=== PATIENT | female | born 1990 | race African-American/Black ===

== ENCOUNTER 2018-09-28 14:44 | Emergency (ER) | payer OTHER ==
[~2018-09-28] VITALS: Ht 162.6 cm; Wt 81.7 kg
[2018-09-28 15:20] LABS: MCH 28.8 pg (26.0-34.0); MCHC 34.3 g/dL (28.0-37.0); MCV 83.8 fL (80.0-100.0); RBC 3.81 mil/uL (4.20-5.00); RDW 15.5 % (10.5-14.5); WBC 7.2 thou/uL (4.0-11.0)
[2018-09-28 15:27] LABS: CALCIUM 8.7 mg/dL (8.5-10.1); CREATININE 0.6 mg/dL (0.6-1.0); POTASSIUM 3.7 mmol/L (3.5-5.1)
[2018-09-28 15:33] LABS: URINE BILIRUBIN NEGATIVE (Negative); URINE BLOOD NEGATIVE (Negative); URINE CLARITY SL CLOUDY; URINE COLOR YELLOW; URINE GLUCOSE-RANDOM* NEGATIVE (Negative); URINE KETONES NEGATIVE (Negative); URINE LEUKOCYTES-REFLEX NEGATIVE (Negative); URINE NITRITE-REFLEX NEGATIVE (Negative); URINE PROTEIN (DIPSTICK) NEGATIVE (Negative); URINE UROBILINOGEN 0.2 E.U./dl (0.2-1.0)
[2018-09-28 17:16] VITALS: BP 121/67
== END 2018-09-28 17:25 | disposition home or self-care (01) ==
LOC: ER 14:44
PROVIDERS: Emergency Medicine
DX: O23.592 Infection of other part of genital tract in pregnancy, second trimester (principal); N76.0 Acute vaginitis; B96.89 Other specified bacterial agents as the cause of diseases classified elsewhere; Z3A.17 17 weeks gestation of pregnancy

== ENCOUNTER 2019-02-24 13:44 | Emergency (ER) | payer OTHER ==
[~2019-02-24] VITALS: Ht 162.6 cm; Wt 72.6 kg
[2019-02-24 14:07] LABS: URINE BILIRUBIN NEGATIVE (Negative); URINE BLOOD NEGATIVE (Negative); URINE CLARITY CLEAR; URINE COLOR YELLOW; URINE GLUCOSE-RANDOM* NEGATIVE (Negative); URINE KETONES NEGATIVE (Negative); URINE LEUKOCYTES-REFLEX NEGATIVE (Negative); URINE NITRITE-REFLEX NEGATIVE (Negative); URINE PROTEIN (DIPSTICK) NEGATIVE (Negative); URINE SPECIFIC GRAVITY 1.025 (1.005-1.035); URINE UROBILINOGEN 0.2 E.U./dl (0.2-1.0)
[2019-02-24 14:36] LABS: ABSOLUTE NEUTROPHILS 3.1 thou/uL (1.4-8.2); BASOPHILS 0.8 % (0.0-2.0); EOSINOPHILS 8.9 % (0.0-3.0); HEMATOCRIT 37.5 % (37.0-47.0); HEMOGLOBIN 12.3 gm/dL (12.0-15.0); LYMPHOCYTES 30.2 % (24.0-44.0); MCH 27.4 pg (26.0-34.0); MCHC 32.7 g/dL (28.0-37.0); MCV 83.7 fL (80.0-100.0); MONOCYTES 5.8 % (1.0-8.0); PLATELET COUNT 197 thou/uL (150-400); POLYS 54.3 % (36.0-66.0); RBC 4.48 mil/uL (4.20-5.00); RDW 14.2 % (10.5-14.5); WBC 5.6 thou/uL (4.0-11.0)
[2019-02-24 14:46] LABS: CALCIUM 8.9 mg/dL (8.5-10.1); CREATININE 0.7 mg/dL (0.6-1.0)
[2019-02-24 14:47] LABS: POTASSIUM 5.2 mmol/L (3.5-5.1)
[2019-02-24] MEDS ORDERED: ALIVE PRENATAL1 EACH PO (15:54)
[2019-02-24 16:13] VITALS: BP 116/63
== END 2019-02-24 16:15 | disposition home or self-care (01) ==
LOC: ER 13:44
PROVIDERS: Student in an Organized Health Care Education/Training Program
DX: O20.0 Threatened abortion (principal); Z3A.01 Less than 8 weeks gestation of pregnancy

== ENCOUNTER 2019-04-18 13:27 | Emergency (ER) | payer OTHER ==
[~2019-04-18] VITALS: Ht 162.6 cm; Wt 81.7 kg
[2019-04-18 13:27] VITALS: BP 116/64
[~2019-04-18 13:27] MED LIST: ALIVE PRENATAL1 EACH PO
[2019-04-18 13:46] LABS: URINE BILIRUBIN NEGATIVE (Negative); URINE BLOOD NEGATIVE (Negative); URINE CLARITY CLOUDY; URINE COLOR YELLOW; URINE GLUCOSE-RANDOM* NEGATIVE (Negative); URINE KETONES NEGATIVE (Negative); URINE LEUKOCYTES-REFLEX NEGATIVE (Negative); URINE NITRITE-REFLEX NEGATIVE (Negative); URINE PROTEIN (DIPSTICK) NEGATIVE (Negative); URINE UROBILINOGEN 0.2 E.U./dl (0.2-1.0)
== END 2019-04-18 14:44 | disposition home or self-care (01) ==
LOC: ER 13:27
PROVIDERS: Emergency Medicine
DX: O26.891 Other specified pregnancy related conditions, first trimester (principal); Z3A.00 Weeks of gestation of pregnancy not specified

== ENCOUNTER 2019-09-24 14:02 | Emergency (ER) | payer OTHER ==
[~2019-09-24] VITALS: Ht 162.6 cm; Wt 98.0 kg
[2019-09-24 14:32] VITALS: BP 122/58
== END 2019-09-24 16:06 | disposition home or self-care (01) ==
LOC: ER 14:02
DX: O26.893 Other specified pregnancy related conditions, third trimester (principal); M54.5 Low back pain; Z3A.36 36 weeks gestation of pregnancy; V89.2XXA Person injured in unspecified motor-vehicle accident, traffic, initial encounter; Y93.89 Activity, other specified; Y92.89 Other specified places as the place of occurrence of the external cause; Y99.8 Other external cause status

== ENCOUNTER 2020-09-17 07:23 | Emergency (ER) | payer OTHER ==
[~2020-09-17] VITALS: Ht 162.6 cm; Wt 81.7 kg
[2020-09-17 08:24] LABS: URINE BILIRUBIN NEGATIVE (Negative); URINE BLOOD 1+ (Negative); URINE CLARITY SL CLOUDY; URINE COLOR YELLOW; URINE GLUCOSE-RANDOM* NEGATIVE (Negative); URINE KETONES NEGATIVE (Negative); URINE NITRITE-REFLEX NEGATIVE (Negative); URINE PROTEIN (DIPSTICK) NEGATIVE (Negative); URINE SPECIFIC GRAVITY >= 1.030 (1.005-1.035); URINE UROBILINOGEN 0.2 E.U./dl (0.2-1.0)
[2020-09-17 08:25] LABS: URINE LEUKOCYTES-REFLEX 2+ (Negative)
[2020-09-17 09:35] LABS: CASTS None Seen /LPF (None Seen); CRYSTALS None Seen /LPF (None Seen); SQUAMOUS 4-10 Moderate /LPF (0-3)
[2020-09-17 09:36] LABS: BACTERIA-REFLEX 1-9 Few /HPF (None Seen); URINE RBC 0-2 Rare /HPF (0-2); URINE WBC-REFLEX 0-5 Rare /HPF (0-5)
[2020-09-17 09:37] LABS: YEAST-REFLEX Present (None Seen)
[2020-09-17] MEDS ORDERED: METROGEL-VAGINA70 GM VAG (10:50)
[2020-09-17 11:30] VITALS: BP 136/68
== END 2020-09-17 11:52 | disposition home or self-care (01) ==
LOC: ER 07:23
PROVIDERS: Emergency Medicine
DX: B37.3 Candidiasis of vulva and vagina (principal); N76.0 Acute vaginitis; Z79.899 Other long term (current) drug therapy

== ENCOUNTER 2020-11-22 09:15 | Emergency (ER) | payer OTHER ==
[~2020-11-22] VITALS: Ht 162.6 cm; Wt 86.2 kg
[~2020-11-22 09:15] MED LIST changes: +METROGEL-VAGINA70 GM VAG
[2020-11-22] MEDS ORDERED: ROBAXIN 750 MG750 MG PO (09:34)
[2020-11-22] MEDS ORDERED: TYLENOL325 M1 PO (09:34)
[2020-11-22] MEDS ORDERED: NAPROSYN500 MG PO (09:34)
[2020-11-22 09:39] VITALS: BP 128/63
== END 2020-11-22 09:40 | disposition home or self-care (01) ==
LOC: ER 09:15
DX: S39.012A Strain of muscle, fascia and tendon of lower back, initial encounter (principal); S29.012A Strain of muscle and tendon of back wall of thorax, initial encounter; V49.9XXA Car occupant (driver) (passenger) injured in unspecified traffic accident, initial encounter; Y93.89 Activity, other specified; Y92.89 Other specified places as the place of occurrence of the external cause; Y99.8 Other external cause status

== ENCOUNTER 2021-01-23 15:36 | Emergency (ER) | payer OTHER ==
[~2021-01-23] VITALS: Ht 162.6 cm; Wt 88.5 kg
[~2021-01-23 15:36] MED LIST changes: +NAPROSYN500 MG PO; +ROBAXIN 750 MG750 MG PO; +TYLENOL325 M1 PO
[2021-01-23 17:02] LABS: URINE BILIRUBIN NEGATIVE (Negative); URINE BLOOD NEGATIVE (Negative); URINE CLARITY CLEAR; URINE COLOR YELLOW; URINE GLUCOSE-RANDOM* NEGATIVE (Negative); URINE KETONES NEGATIVE (Negative); URINE LEUKOCYTES-REFLEX NEGATIVE (Negative); URINE NITRITE-REFLEX NEGATIVE (Negative); URINE PROTEIN (DIPSTICK) NEGATIVE (Negative); URINE SPECIFIC GRAVITY 1.015 (1.005-1.035); URINE UROBILINOGEN 0.2 E.U./dl (0.2-1.0)
[2021-01-23] MEDS ORDERED: FLAGYL500 M1 PO (17:25)
[2021-01-23] MEDS ORDERED: CLEOCIN100 MG VAG (17:31)
[2021-01-23 17:43] VITALS: BP 130/78
== END 2021-01-23 17:43 | disposition home or self-care (01) ==
LOC: ER 15:36
PROVIDERS: Nurse Practitioner
DX: N76.0 Acute vaginitis (principal); B96.89 Other specified bacterial agents as the cause of diseases classified elsewhere; Z79.899 Other long term (current) drug therapy